=== PATIENT | female | born 2000 | race Caucasian/White ===

== ENCOUNTER 2022-04-15 23:39 | Emergency (ER) | payer OTHER, SELFPAY ==
[2022-04-15 23:51] VITALS: BP 134/78; PULSE 84; RESP 18; TEMP 36.7; O2SAT 99; BMI 24.2
[2022-04-16 00:10] LABS: Appearance Urine Clear (Clear); Bilirubin Urine Negative (Negative); Blood Urine Negative (Negative); Color Urine Yellow (Yellow); Glucose Urine Negative (Negative); Ketones Urine Negative (Negative); Leukocyte Esterase Urine Negative (Negative); Nitrite Urine Negative (Negative); Protein Urine Negative (Negative); Specific Gravity Urine >= 1.030 (1.000-1.030)
[2022-04-16 00:19] LABS: Bacteria Urine Moderate; RBC Urine 0-2 (0-2); Squamous Epithelial Cell Urine Moderate (None-Few); WBC Urine 0-2 (0-5)
[2022-04-16 00:19] LABS: Amphetamine Screen Urine Negative (Negative); Barbiturate Screen Urine Negative (Negative); Benzodiazepines Screen Urine Negative (Negative); Cocaine Screen Urine Negative (Negative); Methadone Screen Urine Negative (Negative); Methamphetamines Screen Urine Negative (Negative); Opiate Screen Urine Negative (Negative); Oxycodone Screen Urine Negative (Negative); Phencyclidine Screen Urine Negative (Negative); Tricyclic Antidepressant Urine Negative (Negative)
[2022-04-16 00:20] LABS: Cannabinoid Screen Urine POSITIVE (Negative)
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
--- OUTSIDE RECORDS SUMMARY | 2022-04-16 00:41 | XMS_ITS | Clinical Summary ---
:2000 Author Organization [facility] Address [address] [place] [address] Care Team Providers Name Role Phone Unavailable Primary Care Provider Unavailable Source Comments Patient records contain information from all sites at [facility]. For routine questions regarding patient records, call [phone] during business hours, M-F 8:00 AM - 5:00 PM Central Time. Record requests for emergency care only can be directed to [phone] at any time.[facility] Social History Tobacco Use Types Packs/Day Years Used Date Smoking Tobacco: Never Assessed Sex Assigned at Date Recorded Not on file Plan of Treatment Health Maintenance Due Date Last Done Comments Anemia/Iron Deficiency Screening 2002 During Well Child Visit (if High Risk Menstruating Female) Chlamydia and Gonorrhea Screening 2002 HIV Screening 2002 Hearing Screening during Well Child 2002 Visit Hepatitis B Vaccines (1 of 3 - 2002 3-dose series) Hepatitis C Screening 2002 1 week Well Child Check-Up 2002 1 month Well Child Check-Up 2002 2 month Well Child Check-Up 2002 4 month Well Child Check-Up 2002 6 month Well Child / Alternative 2002 Check-Up COVID-19 Vaccine (#1) 2002 9 month Well Child Check-Up 2002 12 month Well Child / Alternative 01/01/2003 Check-Up 15 month Well Child Check-Up 04/03/2003 18 month Well Child 07/04/2003 2 year Well Child Check-Up 01/02/2004 30 month Well Child Check-Up 07/04/2004 3 year Well Child Check-Up 01/01/2005 6 year Well Child Check-Up 01/01/2006 5 year Well Child Check-Up 01/01/2007 8 year Well Child Check-Up 01/02/2008 7 year Well Child / Alternative 01/01/2009 Check-Up 10 year Well Child Check-Up 01/01/2010 9 year Well Child Check-Up 01/01/2011 HPV Vaccines (1 - 2-dose series) 2011 10 year Well Child Check-Up 01/02/2012 13 year Well Child Check-Up 01/01/2013 14 year Well Child Check-Up 01/01/2014 15 year Well Child Check-Up 01/01/2015 16 year Well Child Check-Up 01/02/2016 Vision Screening during Well Child 02/02/2016 Visit 17 year Well Child Check-Up 01/01/2017 18 year Well Child Check-Up 01/01/2018 19 year Well Child Check-Up 01/01/2019 20 year Well Child Check-Up 01/02/2020 21 year Well Child Check-Up 01/01/2021 DTaP,Tdap,and Td Vaccines (1 - 2021 Tdap) Depression Screening (Annual PHQ-2) 06/08/2021 22 year Well Child Check-Up 01/01/2022 Well Child Check-Up ([facility]) 01/01/2022 Influenza Vaccine (#1) 2022 Meningococcal Vaccine Aged Out No longer eligible based on patient's age to complete this topic Pneumococcal vaccine (0-64 years) Aged Out No longer eligible based on patient's age to complete this topic Insurance Payer Benefit Plan / Subscriber ID Effective Dates Phone Addre ss Type Group [employer] CIGNA CHOICE [id number] 2018-Present [phone] [id number] PPO FUND HRA STANLEY RUANO [facility] PLS [id number]
--- OUTSIDE RECORDS SUMMARY | 2022-04-16 00:41 | XMS_ITS | Encounter Summary ---
:2000 Author Organization [facility] Address [address] [place] [address] Care Team Providers Name Role Phone Unavailable Primary Care Provider Unavailable Encounter Details Date Type Department Care Team Description 04/22/2021 Admin Visit Urgent Care, [facility], in [place], [place] [address] [place] [address] Social History Tobacco Use Types Packs/Day Years Used Date Smoking Tobacco: Never Assessed Sex Assigned at Date Recorded Not on file documented as of this encounter Plan of Treatment Not on filedocumented as of this encounter Visit Diagnoses Not on filedocumented in this encounter Additional Health Concerns Infection Onset Date Last Indicated Resolved Time COVID19 Pending 04/22/2021 04/22/2021 04/23/2021 2:48 PM INDEPENDENT CONSULTANT documented as of this encounter
--- OUTSIDE RECORDS SUMMARY | 2022-04-16 00:41 | XMS_ITS | Encounter Summary ---
:2000 Author Organization [facility] Address [address] [place] [address] Care Team Providers Name Role Phone Unavailable Primary Care Provider Unavailable Reason for Visit Reason Comments [facility] Nurse Line Encounter Details Date Type Department Care Team Description 04/19/2021 Clinical Communication Division of [facility] Nurse Sud[facility] Krupa Ho R.N. [facility] in [place], [place] [address] [place] [address] Social History Tobacco Use Types Packs/Day Years Used Date Smoking Tobacco: Never Assessed Sex Assigned at Date Recorded Not on file documented as of this encounter Miscellaneous Notes Telephone Encounter - Krupa Pappas R.N. 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 : No vaccine received (Continue Screening) Have you had close contact* with a person who has a LABORATORY CONFIRMED case of COVID-19 in the past 14 days?: No (Continue Screening) Have you tested positive for COVID-19 in the last 45 days?: No. COVID-19 testing is indicated (Continue Screening for Additional Testing) Additional Screening for Influenza, RSV and Strep Select appropriate region: : [place] Do you have any of the following respiratory syntonical virus (RSV) complications? : No complications noted (Continue Screening) Do you have any of the following high risk influenza criteria?: No criteria noted (Continue Screening) Are all of the following Strep criteria met? : Age is between 18-75 years,Main symptom or chief complaint of sore throat between 24 hours and 7 days duration,Onset of sore throat not associated with new upper respiratory symptoms such as runny nose, cough, hoarse voice, watery eyes,Yes, all 3 criteriamet. Strep and Influenza testing is indicated (End Screening) Symptom Onset Date of symptom onset: 04/19/21 Testing Recommendation Endpoint Is testing recommended? : Recommended to test Further Triage Needs Any further triage needs? : No further concerns noted. PLAN Endpoint recommendation: Symptomatic testing indicated, advised to be swabbed for COVID-19 and GroupA Strep (age 3 - 75 only), sent to [facility]: An appointment is needed for testing. Call [phone] during the hours of Mon-Fri 8 am - 4 pm or Sat/Sun 9 am - 2 pm to schedule an appointmenttime. Scheduling staff will provide instructions on location and check in for your appointment. , Please avoid using public transportation per CDC recommendation. If you do not have personal transportation please self-quarantine until a personal transportation option is available. Standard Care Points -Get a COVID -19 vaccine as soon as you can if not fully vaccinated. -Wash hands frequently with soap and water, use hand chicken raiser if soap and water aren't available. -Wear a mask over your nose and mouth to help protect yourself and others if not fully vaccinated and having no symptoms -Stay 6 feet between yourself and others who don't live with you. -Avoid crowds and poorly ventilated indoor spaces. -Seek emergent care if any of the following occur Trouble breathing Bluish lips or face Persistent pain or pressure in the chest New confusion or inability to rouse. -Notify your regular care provider of any new or worsening symptoms. Symptomatic Carepoints: Stay home and separate yourself from others and stay in a specific sick room if able. Avoid sharing personal or household items. Rest. Hydrate. Take Acetaminophen/Ibuprofen asneeded to control fever and muscles aches. Use over the counter medications as needed for other symptoms. Gargle with 8 ounces of warm salt water several times a day for throat discomfort (1/4 tsp regular salt to 8 ounces or 1 cup warm water). Do not swallow the salt water. Throat lozenges will help keep the throat lubricated. Hard candy, lollipops, and throat lozenges are equally effective. Use a humidifier. Exposure Carepoints: If you are fully vaccinated (last dose was greater than 14 days) quarantine is not needed if you remain without symptoms. Testing is recommended if you become symptomatic at any point. Education: Patient/caregiver able to teach back Patient agreeable to plan of care: Yes The following references were used: [facility] novel coronavirus (COVID- 19) resources CDC web site https://www.cdc.gov/coronavirus/2019-ncov/your-health/index.html Nursing judgement ILE STYLIST documented in this encounter Plan of Treatment Not on filedocumented as of this encounter Visit Diagnoses Not on filedocumented in this encounter
--- OUTSIDE RECORDS SUMMARY | 2022-04-16 00:41 | XMS_ITS | Encounter Summary ---
:2000 Author Organization [facility] Address [address] [place] [address] Care Team Providers Name Role Phone Unavailable Primary Care Provider Unavailable Reason for Visit Reason Comments COVID Nurse Line Encounter Details Date Type Department Care Team Description 01/31/2021 Clinical Communication Division of Ana Cardenas Nurse Sudha [facility] A, R.N. [facility] [phone] [place], in (Work) [place], [place] [address] [place] [address] Social History Tobacco Use Types Packs/Day Years Used Date Smoking Tobacco: Never Assessed Sex Assigned at Date Recorded Not on file documented as of this encounter Miscellaneous Notes Telephone Encounter - Ana Cardenas RTrinh - 01/31/2021 7:47 AM CDT Caller only had questions about symptoms and is not sure if she wants to get tested at this time. Education given. documented in this encounter Plan of Treatment Not on filedocumented as of this encounter Visit Diagnoses Not on filedocumented in this encounter
--- OUTSIDE RECORDS SUMMARY | 2022-04-16 00:41 | XMS_ITS | Encounter Summary ---
:2000 Author Organization [facility] Address [address] [place] [address] Care Team Providers Name Role Phone Unavailable Primary Care Provider Unavailable Reason for Visit Reason Comments COVID Inquiry Encounter Details Date Type Department Care Team Description 01/31/2021 Clinical Communication Central Appointment TIMBO [place] Office in [facility] [address] [place], [place] [id number] Social History Tobacco Use Types Packs/Day Years Used Date Smoking Tobacco: Never Assessed Sex Assigned at Date Recorded Not on file documented as of this encounter Miscellaneous Notes Telephone Encounter - Agnes Erwin - 01/31/2021 7:43 AM CDT What is the purpose of the call?: Requesting Testing Only Request Testing In the past 14 days are any of the following symptoms new to you and not related to an existing health condition?: New change or loss of taste sensation Because of symptoms, transfer patient to: : [place] COVID Nurse Line (End Screening) Symptom Onset Date of symptom onset: 01/30/21 Testing Recommendation Endpoint Is testing recommended? : Transferred to nursing call line Plan: Endpoint recommendation: Transferred to Nursing/COVID Line/Care Team *Reminder if sending patient for testing in [facility] or [facility], route encounter to the correct testing pool. documented in this encounter Plan of Treatment Not on filedocumented as of this encounter Visit Diagnoses Not on filedocumented in this encounter
--- OUTSIDE RECORDS SUMMARY | 2022-04-16 00:41 | XMS_ITS | Encounter Summary ---
:2000 Author Organization [facility] Address [address] [place] [address] Care Team Providers Name Role Phone Unavailable Primary Care Provider Unavailable Reason for Visit Reason Comments COVID Inquiry Encounter Details Date Type Department Care Team Description 04/19/2021 Clinical Communication Central Appointment CosmoedTIMBO kirk Office in [facility] [address] [place], [place] [address] Social History Tobacco Use Types Packs/Day Years Used Date Smoking Tobacco: Never Assessed Sex Assigned at Date Recorded Not on file documented as of this encounter Miscellaneous Notes Telephone Encounter - Haley Grier I - 04/19/2021 1:58 PM CST What is the purpose of the call?: Requesting Testing Only Request Testing In the past 14 days are any of the following symptoms new to you and not related to an existing health condition?: New sore throat Because of symptoms, transfer patient to: : [place] COVID Nurse Line (End Screening) Symptom Onset Date of symptom onset: 04/19/21 Plan: Endpoint recommendation: Transferred to Nursing/COVID Line/Care Team *Reminder if sending patient for testing in [facility] or [facility], route encounter to the correct testing pool. LITY ENGINEER documented in this encounter Plan of Treatment Not on filedocumented as of this encounter Visit Diagnoses Not on filedocumented in this encounter
--- OUTSIDE RECORDS SUMMARY | 2022-04-16 00:41 | XMS_ITS | Encounter Summary ---
:2000 Author Organization [facility] Address [address] [place] [address] Care Team Providers Name Role Phone Unavailable Primary Care Provider Unavailable Reason for Visit Reason Onset Date Comments Testing For Upper Respiratory Virus Symptoms 04/22/2021 Encounter Details Date Type Department Care Team Description 04/22/2021 External Outreach Department of [facility] Charley Geronimo , Contact With And (Suspected) Exposure To COVID-19; Medicine in [facility], C.N.P. Infection Upper Respiratory [place], [place] [address] [place] [phone] Social History Tobacco Use Types Packs/Day Years Used Date Smoking Tobacco: Never Assessed Sex Assigned at Date Recorded Not on file documented as of this encounter Progress Notes Scarlett Madison, C.M.A. - 04/22/2021 9:54 AM CST Encounter created for symptomatic infectious disease screening with possible COVID, Influenza, RSV, and/or Group A Strep testing. EE TASTER documented in this encounter Plan of Treatment Not on filedocumented as of this encounter Procedures Procedure Name Priority Date/Time Associated Diagnosis Comme nts STREP GROUP A, PCR, Routine 04/22/2021 4:24 PM Re sults for this POCT COFFEE TASTER procedure are i n the results section. STREP GROUP A, PCR, Routine 04/22/2021 4:04 PM Infection Upper Results for this POCT COFFEE TASTER Respiratory procedure are i n the results section. SARS CORONAVIRUS-2 Routine 04/22/2021 2:51 PM Contact With And Results for this RNA, V COFFEE TASTER (Suspected) Exposure procedu re are in To COVID-19 the results section. documented in this encounter Results Strep Group A, PCR, Point of Care (04/22/2021 4:24 PM COFFEE TASTER) P athologist Signature Strep Group A, Negative Negative 04/22/2021 NPRG PCR, POCT 4:24 PM COFFEE TASTER Specimen Anatomical Collection Method Collection Time Receive d Time (Source) Location / / Volume Laterality Varies 04/22/2021 4:24 PM 5:28 COFFEE TASTER PM COFFEE TASTER Generic Rals LAB POCT ORDERABLES - DEVICE Performing Organization Address [facility] Phon e Number [address] LAB NPRG [address] Strep Group A, PCR, Point of Care (04/22/2021 4:04 PM COFFEE TASTER) Analysis Performed At Patho logist Time Signature Strep Group A, Collected DEFAULT 04/22/2021 NPRG PCR, POCT 4:05 PM COFFEE TASTER Specimen Anatomical Collection Method Collection Time Receive d Time (Source) Location / / Volume Laterality Varies (Throat) 04/22/2021 4:04 PM 2020 4:04 COFFEE TASTER PM COFFEE TASTER Charley Geronimo APRN, C.N.P. LAB POCT ORDERABLES - MERARY CE Performing Organization Address [facility] Phon e Number [address] LAB NPRG [address] SARS Coronavirus-2 RNA, V Symptomatic (04/22/2021 2:51 PM COFFEE TASTER) Patholo gist Method Time Signature SARS-CoV-2 Swab, 04/23/2021 MKTO Specimen Nasopharynx 2:48 PM COFFEE TASTER Source SARS CoV-2 Undetected Undetected 04/23/2021 MKTO RNA, TMA 2:48 PM COFFEE TASTER Comment: SARS-CoV-2 RNA absent. This result does not rule out COVID-19 in the patient, as the sensitivity of the test depends o n the timing of the specimen collection and the quality of the specim en. Result should be correlated with patient's history and clinical presentat ion. ----ADDITIONAL INFORMATION---- This molecular amplification test was pe rformed using the Aptima SARS-CoV-2 assay ([employer] on the [employer] Sys tem under emergency use authorization (EUA) by the U.S. Food and Drug Administ ration. Fact sheets for this EUA assay can be fo und at the following links: For Healthcare Providers: https://www.[employer] a.gov/media/399181/download For Patients: https://www.fda.gov/media/ 742566/download Specimen Anatomical Collection Method Collection Time Receive d Time (Source) Location / / Volume Laterality Varies 04/22/2021 2:51 PM 6:55 (Nasopharynx) COFFEE TASTER AM COFFEE TASTER Charley Geronimo APRN, C.N.P. LAB MICROBIOLOGY - GENERAL ORDERABLES Performing Organization Address City/State/ZIP Code Phon e Number [facility]- [address] [place] [address] [place] [address] [address] documented in this encounter Visit Diagnoses Diagnosis Contact With And (Suspected) Exposure To COVID-19 Infection Upper Respiratory documented in this encounter Additional Health Concerns Infection Onset Date Last Indicated Resolved Time COVID19 Pending 04/22/2021 04/22/2021 04/23/2021 2:48 PM COFFEE TASTER documented as of this encounter
[2022-04-16 00:46] LABS: Basophils Absolute Auto 0.05 K/uL (0.00-0.30); Basophils Percent Auto 0.6 % (0.0-3.0); Eosinophils Absolute Auto 0.21 K/uL (0.00-0.50); Eosinophils Percent Auto 2.7 % (0.0-7.0); Hematocrit 40.1 % (33.0-51.0); Immature Granulocytes Abs Auto 0.04 K/uL (0.00-0.30); Immature Granulocytes Pct Auto 0.5 %; Lymphocytes Absolute Auto 2.53 K/uL (0.90-2.90); Lymphocytes Percent Auto 32.2 % (20-44); Mean Corpuscular HGB Conc 35 gm/dL (32-36); Mean Corpuscular Hemoglobin 31 pg (26-34); Mean Corpuscular Volume 88 fL (80-100); Monocytes Percent Auto 9.8 % (0.0-11.0); Neutrophils Absolute Auto 4.26 K/uL (1.7-7.0); Neutrophils Percent Auto 54.2 % (42.0-72.0); Platelet Count* 268 K/uL (140-440); RDW Coefficient of Variation % 11.5 % (11.5-15.5); Red Blood Count 4.57 m/uL (4.00-5.20); White Blood Count* 7.86 K/uL (4.50-11.00)
[2022-04-16 00:48] LABS: Slide Review Reflex No
[2022-04-16 00:56] LABS: HCG Qualitative* Negative (Negative)
[2022-04-16 01:00] LABS: Chloride* 105 mmol/L (96-114); Potassium* 3.8 mmol/L (3.6-5.1); Sodium* 139 mmol/L (135-149)
[2022-04-16 01:03] LABS: Blood Urea Nitrogen* 12 mg/dL (5-24); Carbon Dioxide* 25 mmol/L (20-32); Creatinine* 0.6 mg/dL (0.5-1.5); Est. Creatinine Clearance* 140.01; Estimated Glomerular Filt Rate 132 ml/min; Glucose* 94 mg/dL (60-115)
[2022-04-16 01:04] LABS: Calcium* 9.5 mg/dL (8.4-10.6)
[2022-04-16 01:09] LABS: Acetaminophen* < 10.0 ug/mL (10.0-30.0); Ethanol* < 0.01 % (0.01-0.03); Salicylate* < 1.0 mg/dL (1.0-10)
[2022-04-16 01:09] LABS: SARS PCR* Negative SARS-CoV-2 (Negative)
[2022-04-16 02:06] LABS: Free T4 Free Thyroxine* 1.16 ng/dL (0.70-1.85)
[2022-04-16 03:00] VITALS: BP 125/78; PULSE 79; RESP 18; O2SAT 99
--- NOTE | 2022-04-16 03:40 | ED.NURSE ---
pt. doing DEC assessment.
[2022-04-16 06:50] VITALS: BP 114/74; PULSE 77; RESP 18; TEMP 36.8; O2SAT 99
--- NOTE | 2022-04-16 09:35 | ED.NURSE ---
patient is sleeping in the room
[2022-04-16 10:36] VITALS: BP 96/67; PULSE 83; RESP 18; TEMP 36.1; O2SAT 97
--- NOTE | 2022-04-16 10:49 | ED.NURSE ---
[place] in Status Controller contacted and will assist with bed placement. Pt offered meal and pt declined.
--- NOTE | 2022-04-16 11:44 | PC.SOCIAL ---
Social work: Per MD order for in-pt mental health placement, called [facility] in-pt mental health placement intake at [phone] and spoke with Yeny. Provided initial information by phone regarding mental health need and history. [facility] requested information be faxed for evaluation for admit to the [facility] facility in [place]. highway maintenance worker to follow up as needed with RN to provide the requested information to [facility] for evaluation for admit.
--- NOTE | 2022-04-16 13:18 | PC.SOCIAL ---
Social Work: Called [facility] mental health intake and spoke with Yeny who confirmed they have received requested information. Awaiting call back with decision on admit. Pt is being evaluated for a bed at [facility]. Social work to follow up as needed.
--- NOTE | 2022-04-16 14:00 | ED.NURSE ---
Pt's mom at bedside. Offered to order pt meal and pt declined. Has menu and will use call light when she is hungry
--- NOTE | 2022-04-16 14:33 | ED.NURSE ---
Pt accepted to [facility], but cannot arrive until after 4pm. EMS called for transport. Meal tray ordered Pt and mom aware.
[2022-04-16 15:16] VITALS: BP 100/79; PULSE 72; RESP 18; TEMP 35.9; O2SAT 95
--- NOTE | 2022-04-16 15:30 | ED.NURSE ---
Pt and belongings transfered [facility] via [facility]. Report given to ABRAHAN Bridges
== END 2022-04-16 15:32 | disposition home or self-care (01) ==
PROVIDERS: Family Medicine; Emergency Provider Family Medicine; PCP Internal Medicine
DX: R45.851 Suicidal ideations (principal)
CPT/HCPCS: 36415; 80048; 80143; 80179; 80306; 81001; 82077; 84439; 84443; 84703; 85025; 87086; 87635; 99283; 99284; 99285

== ENCOUNTER 2022-04-16 15:17 | Outpatient (CLI) | payer OTHER, SELFPAY ==
--- OUTSIDE RECORDS SUMMARY | 2022-05-05 14:30 | XMS_ITS | Encounter Summary ---
:2000 Author Organization [facility] Address [address] [place] [address] Care Team Providers Name Role Phone Unavailable Primary Care Provider Unavailable Encounter Details Date Type Department Care Team Description 04/22/2021 Admin Visit Urgent Care, [facility], in [place], [place] [address] [place] [address] Social History Tobacco Use [...] COVID19 Pending 04/22/2021 04/22/2021 04/23/2021 2:48 PM CREDIT ANALYSIS MANAGER documented as of this encounter
--- OUTSIDE RECORDS SUMMARY | 2022-05-05 14:30 | XMS_ITS | Encounter Summary ---
:2000 Author Organization [facility] Address [address] [place] [address] Care Team Providers Name Role Phone Unavailable Primary Care Provider Unavailable Reason for Visit Reason Comments COVID Inquiry Encounter Details Date Type Department Care Team Description 01/31/2021 Clinical Communication Central Appointment TIMBO Dixon Office in [facility] [place] [address] [place], [place] [phone] Social History Tobacco Use Types Packs/Day Years [...] Because of symptoms, transfer patient to: : [place] COVID Nurse Line (End Screening) Symptom Onset Date of symptom onset: 01/30/21 Testing Recommendation Endpoint Is testing recommended? : Transferred to nursing call line Plan: Endpoint recommendation: Transferred to Nursing/COVID Line/Care Team *Reminder if sending patient for testing in [facility] or [facility], route encounter to the correct testing pool. documented in this encounter Plan of Treatment Not on filedocumented as of this encounter Visit Diagnoses Not on filedocumented in this encounter
--- OUTSIDE RECORDS SUMMARY | 2022-05-05 14:30 | XMS_ITS | Encounter Summary ---
:2000 Author Organization [facility] Address [address] [place] [address] Care Team Providers Name Role Phone Unavailable Primary Care Provider Unavailable Reason for Visit Reason Comments TIMBO Nurse Line Encounter Details Date Type Department Care Team Description 04/19/2021 Clinical Communication Division of TIMBO Pappas Nurse Sudha [facility] Internal Krupa Ho R.N. [facility] in [place], [place] [address] [place] [address] Social History Tobacco Use Types Packs/Day Years Used Date Smoking Tobacco: Never Assessed Sex Assigned at Date Recorded Not on file documented as of this encounter Miscellaneous Notes Telephone Encounter - Krupa Pappas R.N. - 04/19/2021 2:05 PM LEARNING AND DEVELOPMENT OFFICER COVID-19 Nurse Line Screening ASSESSMENT Initial Screening [...] RSV and Strep Select appropriate region: : [place] Do you have any of the following [...] (age 3 - 75 only), sent to [facility]: An appointment is needed for testing. Call [phone] during the hours of Mon-Fri 8 am [...] frequently with soap and water, use hand commercial loan analyst if soap and water aren't available. -Wear [...] care: Yes The following references were used: [facility] novel coronavirus (COVID- 19) resources CDC web site https://www.cdc.gov/coronavirus/2019-ncov/your-health/index.html Nursing judgement NING AND DEVELOPMENT OFFICER documented in this encounter Plan of Treatment Not on filedocumented as of this encounter Visit Diagnoses Not on filedocumented in this encounter
--- OUTSIDE RECORDS SUMMARY | 2022-05-05 14:30 | XMS_ITS | Encounter Summary ---
:2000 Author Organization [facility] Address [address] [place] [address] Care Team Providers Name Role Phone Unavailable Primary Care Provider Unavailable Reason for Visit Reason Onset Date Comments Testing For Upper Respiratory Virus Symptoms 04/22/2021 Encounter Details Date Type Department Care Team Description 04/22/2021 External Outreach Department of [facility] Charley Geronimo , Contact With And (Suspected) Exposure To COVID-19; Medicine in [facility], C.N.P. Infection Upper Respiratory [place], [place] [address] [place] [phone] Social History Tobacco Use Types Packs/Day Years Used Date Smoking Tobacco: Never Assessed Sex Assigned at Date Recorded Not on file documented as of this encounter Progress Notes Scarlett Madison, C.M.A. - 04/22/2021 9:54 AM CST Encounter created for symptomatic infectious disease screening with possible COVID, Influenza, RSV, and/or Group A Strep testing. K MAKER documented in this encounter Plan of Treatment Not on filedocumented as of this encounter Procedures Procedure Name Priority Date/Time Associated Diagnosis Comme nts STREP GROUP A, PCR, Routine 04/22/2021 4:24 PM Re sults for this POCT SHANK MAKER procedure are i n the results section. STREP GROUP A, PCR, Routine 04/22/2021 4:04 PM Infection Upper Results for this POCT SHANK MAKER Respiratory procedure are i n the results section. SARS CORONAVIRUS-2 Routine 04/22/2021 2:51 PM Contact With And Results for this RNA, V SHANK MAKER (Suspected) Exposure procedu re are in To COVID-19 the results section. documented in this encounter Results Strep Group A, PCR, Point of Care (04/22/2021 4:24 PM SHANK MAKER) P athologist Signature Strep Group A, Negative Negative 04/22/2021 NPRG PCR, POCT 4:24 PM SHANK MAKER Specimen Anatomical Collection Method Collection Time Receive d Time (Source) Location / / Volume Laterality Varies 04/22/2021 4:24 PM 5:28 SHANK MAKER PM SHANK MAKER Generic [facility]als LAB POCT ORDERABLES - DEVICE Performing Organization Address [facility] Phon e Number [address] LAB NPRG [address] Strep Group A, PCR, Point of Care (04/22/2021 4:04 PM SHANK MAKER) Analysis Performed At Patho logist Time Signature Strep Group A, Collected DEFAULT 04/22/2021 NPRG PCR, POCT 4:05 PM SHANK MAKER Specimen Anatomical Collection Method Collection Time Receive d Time (Source) Location / / Volume Laterality Varies (Throat) 04/22/2021 4:04 PM 2020 4:04 SHANK MAKER PM SHANK MAKER Charley Geronimo APRN, C.N.P. LAB POCT ORDERABLES - MERARY CE Performing Organization Address City/[facility] Phon e Number [address] LAB NPRG [address] SARS Coronavirus-2 RNA, V Symptomatic (04/22/2021 2:51 PM SHANK MAKER) Patholo gist Method Time Signature SARS-CoV-2 Swab, 04/23/2021 MKTO Specimen Nasopharynx 2:48 PM SHANK MAKER Source SARS CoV-2 Undetected Undetected 04/23/2021 MKTO RNA, TMA 2:48 PM SHANK MAKER Comment: SARS-CoV-2 RNA absent. This result does not rule out COVID-19 in the patient, as the sensitivity of the test depends o n the timing of the specimen collection and the quality of the specim en. Result should be correlated with patient's history and clinical presentat ion. ----ADDITIONAL INFORMATION---- This molecular amplification test was pe rformed using the Aptima SARS-CoV-2 assay ([employer] on the [employer] Sys tem under emergency use authorization (EUA) by the U.S. Food and Drug Administ ration. Fact sheets for this EUA assay can be fo und at the following links: For Healthcare Providers: https://www.[employer] a.gov/media/698523/download For Patients: https://www.fda.gov/media/ 413885/download Specimen Anatomical Collection Method Collection Time Receive d Time (Source) Location / / Volume Laterality Varies 04/22/2021 2:51 PM 6:55 (Nasopharynx) SHANK MAKER AM SHANK MAKER Charley Geronimo APRN C.N.P. LAB MICROBIOLOGY - GENERAL ORDERABLES Performing Organization Address City/State/ZIP Code Phon e Number [facility]- [address] [place] [address] [place] [address] System [address] documented in this encounter Visit Diagnoses Diagnosis Contact With And (Suspected) Exposure To COVID-19 Infection Upper Respiratory documented in this encounter Additional Health Concerns Infection Onset Date Last Indicated Resolved Time COVID19 Pending 04/22/2021 04/22/2021 04/23/2021 2:48 PM SHANK MAKER documented as of this encounter
--- OUTSIDE RECORDS SUMMARY | 2022-05-05 14:30 | XMS_ITS | Clinical Summary ---
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 LORazepam (ATIVAN) Take 1 5 tablet. 0 07/30/2020 Discontinued 0.5 mg tablet by 2 (Reorder tabIndications: mouth every (E -cancel not Anxiety 6 hours if sent)) needed for Anxiety. escitalopram Take 20 mg 0 04/21/2022 Disco ntinued oxalate (LEXAPRO) by mouth 2 (R eorder 20 mg tablet every (E-canc el not morning. sent)) Hospital, Clinic, or Other Ordered Dose Route Frequency Start Date End Date Status Facility Administered Medication etonogestrel subdermal 1 Each Sdrm Q 3 YEARS 08/04/2017 Active implant 1 Each (NEXPLANON)Indications: Insertion of Nexplanon, Evaluation regarding contraception options etonogestrel subdermal 1 Each Sdrm Q 3 YEARS 08/03/2020 Active implant (NEXPLANON) 1 EachIndications: Encounter for contraceptive management, unspecified type Active Problems Problem Noted Date Vitamin D deficiency 04/18/2019 Abnormal LFTs 04/18/2019 Overview: needs recheck Persistent depressive disorder 03/24/2016 Adjustment disorder with disturbance of emotion 2015 Recurrent major depressive disorder 11/13/2015 PTSD (post-traumatic stress disorder) 07/24/2015 Eczema 08/07/2010 Flexural eczema Resolved Problems Problem Noted Date Resolved Date Major depression in partial remission 07/11/2015 Encounters Date Type Specialty Care Team Description 05/05/2022 Office Visit Elyse Dowd, DO Hospit al F/U; Medication Management (Dis ability forms -FMLA) 05/05/2022 Travel from Last 3 Months Immunizations Name Administration Dates Next Due COVID-19 vaccine ([employer] 10/27/2020, 10/06/2020 30mcg/0.3mL) 12YO+ CITLALLI-SUCROSE PF, MDV DTaP 08/05/2006, 04/24/2004, 2002, 2002, 2002 HIB-HepB (Comvax) 04/24/2004, 2002, 2002 HPV 9 (Gardasil 9) 01/22/2016 Hepatitis B (Peds) 04/24/2004, 2002, 2002 Human Papilloma Virus Vaccine 01/13/2014 Human Papilloma Virus Vaccine, 01/13/2014 Unspecified Inactivated Polio Vaccine 08/05/2006, 2002, 2002 , 2002 Influenza, IIV4 04/27/2019, 03/24/2016 MMR 04/24/2004, 03/09/2003 MMRV 08/05/2006 Meningococcal Vaccine (Menveo) 04/27/2019 Meningococcal, Unspecified 01/13/2014 Pneumococcal conj 7-Valent (Prevnar 7) 04/24/2004, 3, 2002 Tdap 01/13/2014 Varicella Vaccine 03/09/2003, 03/09/2003 Family History Medical History Relation Name Comments Good Health Brother Asthma Father Good Health Mother Heart Disease Mother SVT Diabetes Other gp Heart Disease Other gp Hypertension Other gp Relation Name Status Comments Brother Father Mother Other gp Social History Tobacco Use Types Packs/Day Years Used Date Passive Smoke Exposure - Never Smoker Smokeless Tobacco: Never Used Tobacco Cessation: Counseling Given: Yes Comments: mom smokes outside Alcohol Use Standard Drinks/Week Comments No 0 (1 standard drink = 0.6 oz pure alcoho l) Sex Assigned at Date Recorded Not on file COVID-19 Exposure Response Date Recorded In the last 10 days, have you been in contact with No / Unsu re 05/05/2022 9:06 AM PRODUCTION BOW MAKER someone who was confirmed or suspected to have Coronavirus/COVID-19? Obstetrics History Last Filed Vital Signs Vital Sign Reading Time Taken Comments Blood Pressure 98/62 05/05/2022 9:41 AM PRODUCTION BOW MAKER Pulse 62 05/05/2022 9:41 AM PRODUCTION BOW MAKER Temperature 36.6 ??C (97.8 ??F) 07/24/2020 4:58 PM PRODUCTION BOW MAKER Respiratory Rate 16 05/05/2022 9:41 AM PRODUCTION BOW MAKER Oxygen Saturation 95% 08/03/2020 4:09 PM PRODUCTION BOW MAKER Inhaled Oxygen Concentration - - Weight 74.5 kg (164 lb 3.2 oz) 05/05/2022 9:41 AM PRODUCTION BOW MAKER Height 163.1 cm (5' 4.2) 08/03/2020 4:09 PM PRODUCTION BOW MAKER Body Mass Index - - Plan of Treatment Health Maintenance Due Date Last Done Comments Well Child Check for age 3-20 01/21/2017 01/22/2016, 2006 HIV for age 15-65 2017 Chlamydia for age 16-24 2018 Hepatitis C screening for age 0802/02/2020 18-79 COVID-19 vaccine series (3 - 12/22/2020 10/27/2020, 021 Booster for Pfizer series) BMI (ht and wt on same day) for 08/03/2021 08/03/2020, 02/07 age 18+ Influenza for age 9-49 02/06/2022 04/27/2019, 03/24/2016 Depression screening for age 12+ 05/05/2023 05/05/2022, , 10/25/2019, Additional history exists Tetanus booster 01/14/2024 01/13/2014 Tdap Completed 01/13/2014 HPV series for age 9-26 Completed 01/22/2016, 01/13/2014, 01/13/2014 Meningococcal series for age 11-21 Completed 04/27/2019, 0 01/13/2014 Results Not on filefrom Last 3 Months Insurance Payer Benefit Plan / Subscriber ID Effective Dates Phone Addre ss Type Group [employer] HP [id number] 2018-Present [address] [place] [address] [employer] OF [id number] 2009-Present [address] [place] [address] (Home) [facility] [address] [employer] Personal/Family Mother [id number] (Home) [place] [phone] [id number] (Work) Advance Directives Latest Code Status on File Code Status Date Activated Date Inactivated Comments Full Code 04/22/2016 1:56 AM 04/28/2016 8:38 PM Code Status Discussion: Not Discussed Full Code 03/23/2016 5:37 PM 03/28/2016 1:38 PM Care Teams Dba Manager Relationship Specialty Start Date End Date Elyse Dowd DO PCP - General Internal Medicine 07/11/15 [address] [facility] [place] [id number] Yamile Valderrama PsyD, LP Psychology 05/25/19 [address] [facility] [place] [id number]
--- OUTSIDE RECORDS SUMMARY | 2022-05-05 14:30 | XMS_ITS | Encounter Summary ---
:2000 Author Organization [facility] Address [address] [place] [address] Care Team Providers Name Role Phone Unavailable Primary Care Provider Unavailable Reason for Visit Reason Comments COVID Nurse Line Encounter Details Date Type Department Care Team Description 01/31/2021 Clinical Communication Division of Ana Cardenas Nurse Sudha [facility] Internal A, R.N. [facility] [phone] [place], [place] (Work) [place], [place] [address] [place] [address] Social History Tobacco Use Types Packs/Day Years [...]
--- OUTSIDE RECORDS SUMMARY | 2022-05-05 14:30 | XMS_ITS | Clinical Summary ---
:2000 Author Organization [facility] Address [address] [place] [address] Care Team Providers Name Role Phone Unavailable Primary Care Provider Unavailable Source Comments Patient records contain information from all sites at [facility]. For routine questions regarding patient records, call [phone] during business hours, M-F 8:00 AM - 5:00 PM Central Time. Record requests for emergency care only can be directed to [phone] at any time.[facility] Allergies Active Allergy Reactions Severity Noted Date Comments Amoxicillin GI intolerance Medium 04/16/2022 Medications Medication Sig Dispensed Refills Start Date End Date Status etonogestreL 1 each by 0 Active (NEXPLANON) 68 mg subdermal route subdermal implant continuously. escitalopram (LEXAPRO) Take 1 tablet (20 30 tablet 0 2 Active 20 mg tablet mg total) by mouth daily. 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 Family History Medical History Relation Name Comments Autism spectrum disorder Brother Completed Suicide Maternal Grandfather Alcohol problem drinking Mother Dementia Paternal Grandfather Relation Name Status Comments Brother Maternal Grandfather Mother Alive Paternal Grandfather Social History Tobacco Use Types Packs/Day Years Used Date Smoking Tobacco: Never Smokeless Tobacco: Never Tobacco Cessation: Counseling Given: Not Answered Alcohol Use Standard Drinks/Week Comments Yes 0 (1 standard drink = 0.6 oz pure alcoho l) rarely uses Sex Assigned at Date Recorded Not on file Last Filed Vital Signs Vital Sign Reading Time Taken Comments Blood Pressure 104/57 04/21/2022 6:51 AM 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 Pulse 80 04/21/2022 6:51 AM 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 Temperature 37.4 ??C (99.3 ??F) 04/21/2022 6:51 AM 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 Respiratory Rate 16 04/21/2022 6:51 AM 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 Oxygen Saturation 97% 04/21/2022 6:51 AM 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 Inhaled Oxygen Concentration - - Weight 70 kg (154 lb 5.2 oz) 04/16/2022 5:47 PM 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 Height 162 cm (5' 3.78) 04/16/2022 5:47 PM 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 Body Mass Index 26.67 04/16/2022 5:47 PM 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 Plan of Treatment Health Maintenance Due Date Last Done Comments Anemia/Iron Deficiency Screening 2002 During Well Child Visit (if High Risk Menstruating Female) Chlamydia and Gonorrhea Screening 2002 Depression Monitoring (PHQ-9) 2002 HIV Screening 2002 Hearing Screening during [...] month Well Child / Alternative 01/01/2003 Check-Up Hepatitis A Vaccines (1 of 2 - Risk 2003 2-dose series) 15 month Well Child Check-Up 04/03/2003 20 [...] DTaP,Tdap,and Td Vaccines (1 - 2021 Tdap) 20 year Well Child Check-Up 01/01/2022 Well [...] Addre ss Type Group [employer]IG[employer] CIGNA CHOICE [id number] 2018-Present [phone] [address] PPO FUND HRA [facility] [place] [id number] Advance Directives For more information, please contact: [phone] Latest Code Status on File Code Status Date Activated Date Inactivated Comments Full Code 04/16/2022 6:02 PM 04/21/2022 5:56 PM Question Answer Comments Full Code: Not Discussed Due to: Not medically appropriate
--- OUTSIDE RECORDS SUMMARY | 2022-05-05 14:30 | XMS_ITS | Encounter Summary ---
:2000 Author Organization [facility] Address [address] [place] [address] Care Team Providers Name Role Phone Unavailable Primary Care Provider Unavailable Reason for Visit Reason Comments COVID Inquiry Encounter Details Date Type Department Care Team Description 04/19/2021 Clinical Communication Central Appointment [facility] [place] [facility] in [facility] [address] [place], [place] [address] Social History Tobacco Use Types Packs/Day Years [...] Because of symptoms, transfer patient to: : [place] COVID Nurse Line (End Screening) Symptom Onset Date of symptom onset: 04/19/21 Plan: Endpoint recommendation: Transferred to Nursing/COVID Line/Care Team *Reminder if sending patient for testing in [facility] or [facility], route encounter to the correct testing pool. 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
== END 2022-04-16 15:18 | disposition home or self-care (01) ==
LOC: AMB 05-05 13:40
PROVIDERS: PCP Internal Medicine; Visit Provider Family Medicine
DX: R45.851 Suicidal ideations (principal)
CPT/HCPCS: A0425; A0428